=== PATIENT | male | born 1990 | race Caucasian/White ===

== ENCOUNTER 2021-01-02 06:38 | Outpatient (CLI) | payer BC, SELFPAY ==
--- NOTE | ~2021-01-02 | MR_ITS ---
EXAMINATION: MR brain/brain stem wo/w con EXAM DATE: 01/02/2021 07:45 INDICATION: R55 - Syncope and collapse. TECHNIQUE: Magnetic resonance imaging (MRI) of the brain/brain stem obtained without contrast. Sagit david T1, axial diffusion, gradient echo (T2*), T1, T2, FLAIR sequences obtained. Patient was then inj ected with 18 cc intravenous Multihance contrast. Axial and coronal postcontrast T1 weighted sequence s obtained. There is no prior study for comparison. FINDINGS: There are no areas of restricted diffusion to suggest acute infarction. There is no acute hemorrhage seen on the T2*, a hemosiderin sensitive sequence. No intraparenchymal brain mass. The ve ntricles are normal in size. There are no extra-axial collections. Flow voids are seen in the cereb ral arteries on the T2-weighted sequences consistent with their expected patency. The orbits are unr emarkable. Soft tissue is unremarkable. There are no areas of abnormal enhancement on the postcont rast images. Small amount of bilateral mastoid fluid, effusions. IMPRESSION: 1. No acute intracranial findings. 2. Small mastoid effusions. Reviewed, dictated and finalized at location D. 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
[2021-01-02 07:17] LABS: Estimated Glomerular Filt Rate > 60
== END 2021-01-02 06:39 | disposition home or self-care (01) ==
PROVIDERS: PCP Internal Medicine; Visit Provider Internal Medicine
DX: R55 Syncope and collapse (principal); R93.0 Abnormal findings on diagnostic imaging of skull and head, not elsewhere classified
CPT/HCPCS: 70553; A9577

== ENCOUNTER 2024-04-08 15:06 | Emergency (ER) | payer BC, SELFPAY ==
--- NOTE | ~2024-04-08 | XR_ITS ---
EXAMINATION: XR chest 2V DATE: 04/08/2024 15:44 INDICATION: Palpitations. Chest pain. TECHNIQUE: Frontal and lateral views of the chest were obtained. COMPARISON: None. FINDINGS: There is no pneumonia, pleural effusion, or pneumothorax. The heart size is normal. IMPRESSION: 1. No acute cardiopulmonary disease. Reviewed, dictated and finalized at location A.
[2024-04-08 15:11] VITALS: BP 157/102; PULSE 76; RESP 16; TEMP 36.3; O2SAT 100
[2024-04-08 15:12] VITALS: BP 157/102; PULSE 72; RESP 13; O2SAT 100
[2024-04-08 15:15] VITALS: PULSE 76
--- NOTE | 2024-04-08 15:15 | ECG_ITS ---
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 Measurements Intervals [place] Rate: 71 P: 53 FL: 134 QRS: 67 QRSD: 105 T: 49 QT: 372 QTc: 405 Interpretive Statements SINUS RHYTHM WITH SINUS ARRHYTHMIA POSSIBLE LEFT ATRIAL ENLARGEMENT DELAYED PRECORDIAL R/S TRANSITION BORDERLINE ECG No previous ECG available for comparison Electronically Signed On 04-08-2024 16:50:43 CDT by Gerard Enciso D.O.
[2024-04-08 15:16] VITALS: BP 145/103; PULSE 85; RESP 20
[2024-04-08 15:25] LABS: Basophils Percent Auto 0.3 % (0.2-1.2); Eosinophils Absolute Auto 0.2 K/mm3 (0-0.3); Eosinophils Percent Auto 2.3 % (0-4.4); Hematocrit 48.7 % (42.0-52.0); Hemoglobin 16.5 g/dL (14.0-18.0); Immature Granulocyte Absolute 0.03 K/mm3 (0.00-0.031); Immature Granulocyte Percent A 0.3 % (0-0.5); Lymphocytes Absolute Auto 2.48 K/mm3 (0.9-3.2); Lymphocytes Percent Auto 24.7 % (18.3-44.2); Mean Corpuscular HGB Conc 33.9 g/dl (32-36); Mean Corpuscular Hemoglobin 30.3 pg (26-34); Mean Corpuscular Volume 89.5 fl (80-100); Mean Platelet Volume 8.7 fl (7.4-10.4); Monocytes Percent Auto 9.7 % (2.6-8.5); Neutrophils Absolute Auto 6.3 K/mm3 (1.3-6.7); Neutrophils Percent Auto 62.7 % (45.5-73.1); Platelet Count Result 287 k/mm3 (150-375); Red Blood Count 5.44 M/mm3 (4.6-6.20); Red Cell Distribution Width 14.6 % (11.5-14.5)
[2024-04-08 15:37] LABS: Alanine Aminotransferase 20 U/L (6-50); Albumin Level 4.9 g/dL (3.5-5.1); Alkaline Phosphatase 64 U/L (38-126); Anion Gap 7 mmol/L (4-12); Aspartate Amino Transferase 29 U/L (17-59); Bilirubin,Total 1.1 mg/dL (0.2-1.3); Blood Urea Nitrogen 8 mg/dL (9-20); Calcium 9.6 mg/dL (8.4-10.2); Carbon Dioxide 28 mmol/L (22-30); Chloride 104 mmol/L (98-107); Estimated CRCL calculation 134 ml/min; Estimated Glomerular Filt Rate > 60; Glucose 109 mg/dL (65-110); Lipase 75 U/L (23-300); Potassium 3.4 mmol/L (3.4-5.0); Sodium 139 mmol/L (137-145)
[2024-04-08 15:38] LABS: INR 0.9; Prothrombin Time 12.1 Seconds (11.1-14.7)
[2024-04-08 15:39] LABS: Partial Thromboplastin Time 26.7 Seconds (22.3-36.8)
--- NOTE | 2024-04-08 15:43 | ED.CHESTPAIN ---
HPI - Chest Pain General Chief Complaint: Chest Pain Stated Complaint: chest pain Time Seen by Provider: 04/08/24 15:11 History of Present Illness HPI narrative: 33-year-old male with history of heart palpitations and alcohol abuse presented to the emergency department for evaluation of left-sided chest pain that lasted about 15-20 minutes prior to arrival. Patient states while he was riding his car he had onset of left-sided chest pain that did radiate to his back. Patient reports the pain was short lasting and upon arrival emergency department patient states pain is currently resolved. Patient does admit to drinking at least 8 beers a day for the last few weeks. Patient did have a prior workup for heart palpitations that had no acute abnormalities. Patient states due to his increased alcohol consumption he has not been eating and drinking well. Related Data Home Medications Medication Instructions Recorded Confirmed No Home Medications 12/21/20 12/21/20 Allergies Allergy/AdvReac Type Severity Reaction Status Date / Time amoxicillin Allergy Intermediate Unknown Verified 04/08/24 15:14 Review of Systems Review of Systems: All systems reviewed & are unremarkable except as noted in HPI and below PMFSH Past Medical History Medical History (Updated 04/09/24 @ 00:01 by Moe Hanley) History of foot fracture Family History Family History (Updated 12/21/20 @ 15:40 by Mustapha Esqueda Jr., MD) Mother Breast cancer Sibling Multiple myeloma Social History Social History (Updated 12/21/20 @ 15:42 by Mustapha Esqueda Jr., MD) Smoking status: Current some day smoker Tobacco type: cigarettes Second hand tobacco smoke exposure: No Alcohol intake: current Drinks per week: 20 Alcohol use details: beer Substance use: never Living arrangements: with family Additional living arrangements comments: with at a home Occupation/Education: occupation 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 HEAD: normocephalic, atraumatic. EYES: PERRLA/EOMI, conjunctivae clear. NOSE: Normal no drainage EARS:TMS clear with good light reflex. THROAT: Pharynx clear, no exudate. NECK: Supple. No adenopathy, no masses. RESPIRATORY: Airway patent, respirations nonlabored. Clear to auscultation bilaterally, no rales, rhonchi, wheezing. CARDIOVASCULAR: Regular rate and rhythm without murmurs rubs or gallops. ABDOMINAL: Soft, nontender, nondistended, normal bowel sounds MUSCULOSKELETAL: Moves all extremities. Strength/ROM intact, No edema, No calf tenderness. NEURO: Alert. Cranial nerves II through XII intact. grossly intact SKIN: Warm, dry. Normal Color Course Vital Signs Vital signs: Vital Signs Temperature 97.4 F L 04/08/24 15:11 Pulse Rate 76 04/08/24 15:11 Respiratory Rate 16 04/08/24 15:11 Blood Pressure 157/102 H 04/08/24 15:11 Pulse Oximetry 100 04/08/24 15:11 Temperature 97.4 F L 04/08/24 15:11 Pulse Rate 80 04/08/24 17:31 Respiratory Rate 15 04/08/24 17:31 Blood Pressure 135/83 04/08/24 19:01 Pulse Oximetry 99 04/08/24 19:01 Oxygen Delivery Room Air 04/08/24 15:30 MDM - Chest Pain MDM Narrative Medical decision making narrative: 33-year-old male presents emergency department for evaluation for left-sided chest pain that is now resolved. Patient was afebrile with no leukocytosis and a stable hemoglobin of 16.5. Patient has no acute abnormalities on his CMP patient had negative serial EKGs and serial troponin. Chest x-ray showed no acute cardiopulmonary abnormality Differential Diagnosis Differential diagnosis: Likely pneumothorax, unstable
[2024-04-08 15:46] LABS: Troponin I < 0.012 ng/mL (0.000-0.034)
[2024-04-08] MEDS: THIAMINE HCL 200 MG/2 ML VIAL 100 MG IV PUSH (16:00)
[2024-04-08] MEDS: SODIUM CHLORIDE 0.9% IV 1,000 ML 999 ML IV CONT (16:00)
[2024-04-08 17:31] VITALS: BP 144/86; PULSE 80; RESP 15; O2SAT 100
--- NOTE | 2024-04-08 18:17 | ECG_ITS ---
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 Measurements Intervals [place] Rate: 73 P: 56 MI: 148 QRS: 64 QRSD: 106 T: 57 QT: 394 QTc: 435 Interpretive Statements SINUS RHYTHM POSSIBLE LEFT ATRIAL ENLARGEMENT DELAYED PRECORDIAL R/S TRANSITION BORDERLINE ECG Compared to ECG 04/08/2024 15:12:17 Sinus arrhythmia no longer present Electronically Signed On 04-09-2024 14:42:16 CDT by Gerard Enciso D.O.
[2024-04-08 18:40] LABS: Troponin I < 0.012 ng/mL (0.000-0.034)
[2024-04-08 19:01] VITALS: BP 135/83; O2SAT 99
== END 2024-04-08 19:23 | disposition home or self-care (01) ==
PROVIDERS: Emergency Provider Emergency Medicine
DX: R07.89 Other chest pain (principal); F17.210 Nicotine dependence, cigarettes, uncomplicated; R94.31 Abnormal electrocardiogram [ECG] [EKG]
CPT/HCPCS: 36415; 71046; 80053; 83690; 84484; 85025; 85610; 85730; 93005; 96361; 96374; 99284; J3411; J7030